=== PATIENT | male | born 1935 | race Asian ===

== ENCOUNTER 2019-02-02 18:04 | Emergency (ER) | payer MEDICARE ==
[~2019-02-02] VITALS: Ht 162.6 cm; Wt 63.5 kg
[2019-02-02 18:07] VITALS: BP 142/72
--- NOTE | 2019-02-02 18:09 | NUR ---
ED Nurse Note: brought in by BELINDA from [facility] for G-tube replacement- 14Fr. Gauze applied at the GTube site.
--- NOTE | 2019-02-02 18:14 | NUR ---
ED Nurse Note: Gtube 14Fr placed by STANLEY. Radiology called for KUB
--- NOTE | 2019-02-02 18:14 | Emergency Room Report ---
History of Present Illness General Chief Complaint: Malfunctioning Gastric Tube Source: EMS Present Illness HPI Patient presents post G tube coming out. Here for replacement. No cough or fever reported. Patient unable to give history. H/O dementia. Allergies: Coded Allergies: No Known Allergies (Unverified , 02/02/19) Patient History Limited by: medical condition Past Medical History: see triage record Past Surgical History: other - g tube Social History Narrative SNF Reviewed Nursing Documentation: PMH: Agreed; PSxH: Agreed Nursing Documentation-PMH Hx Hypertension: Yes Hx Diabetes: Yes Review of Systems All Other Systems: limited Physical Exam Vital Signs Date Time Temp Pulse Resp B/P (MAP) Pulse Ox O2 Delivery O2 Flow Rate FiO2 02/02/19 18:01 97.5 61 18 142/72 94 Room Air Sp02 EP Interpretation: reviewed, normal General Appearance: alert, thin, Chronically Ill Head: normocephalic, atraumatic Eyes: bilateral eye normal inspection, bilateral eye PERRL ENT: hearing grossly normal, normal voice, moist mucus membranes Neck: no bony tend Respiratory: no respiratory distress Cardiovascular #1: regular rate, rhythm Cardiovascular #2: 2+ radial (L) Gastrointestinal: non tender, soft, scaphoid Musculoskeletal: other - atrophy Neurologic: motor weakness - LE greater than UE Psychiatric: depressed affect Skin: other - dressings on ankles and protective boots Procedures Additional Procedure Procedure Narrative Insertion of G tube - 14 [place] - minimal bleeding during initial attempts, then successful insertion Medical Decision Making Diagnostic Impression: Primary Impression: Malfunction of gastrostomy tube ER Course Patient here for gastrostomy tube replacement. No fever or respiratory distress. Not tachycardic or toxic. Gastrostomy tube placed. Abdominal film with Gastrografin reveals appropriate placement of gastrostomy tube. Patient stable for outpatient observation and treatment. Other X-Ray Diagnostic Results Other X-Ray Diagnostic Results : X-Ray ordered: Abdomen with Gastrografin # of Views/Limited Vs Complete: 1 View Indication: Other EP Interpretation: Yes Interpretation: nonspecific bowel gas, no sbo, other - Appropriate placement of gastrostomy tube without leakage Impression: Other Electronically Signed by: Electronically signed by Arnie Galvan MD Last Vital Signs Date Time Temp Pulse Resp B/P (MAP) Pulse Ox O2 Delivery O2 Flow Rate FiO2 02/02/19 18:50 97.5 66 18 123/89 94 Room Air Status: improved Disposition: XFER SNF Condition: Improved Arnie Galvan MD Feb 02, 2019 18:14
[2019-02-02 18:50] VITALS: BP 123/89
--- NOTE | 2019-02-02 18:55 | NUR ---
ED Nurse Note: Pt cleared by health care Provider for discharge. DC instructions/prescription was given and explained to pt and verbalized understanding of teachings. All medical deviecs such as ID band removed. Pt is transferred back to [facility] via [facility] ambulance.
--- NOTE | 2019-02-02 19:15 | Diagnostic Imaging Report ---
EXAM: XR Abdomen, 2 Views CLINICAL HISTORY: TUBE PLCMT TECHNIQUE: Frontal view of the abdomen/pelvis with upright view of the abdomen. COMPARISON: No relevant prior studies available. FINDINGS: Intraperitoneal space: No free air. Gastrointestinal tract: Nonobstructive bowel gas pattern. Bones/joints: Degenerative changes the osseous structures. Soft tissues: Surgical clips project over the upper abdomen. Tubes, lines and devices: Status post administration of enteric contrast through a percutaneous G-tube. Contrast is noted within the stomach and proximal small bowel. No evidence of leak. IMPRESSION: Status post administration of enteric contrast through a percutaneous G- tube. Contrast is noted within the stomach and proximal small bowel. No evidence of leak.
== END 2019-02-02 19:37 ==
LOC: EDBD 18:04 → EMR 19:25
DX: K94.23 Gastrostomy malfunction (principal); F03.90 Unspecified dementia, unspecified severity, without behavioral disturbance, psychotic disturbance, mood disturbance, and anxiety; I10 Essential (primary) hypertension; E11.9 Type 2 diabetes mellitus without complications
CPT/HCPCS: 74018; 99283